=== PATIENT | female | born 1980 | race Caucasian/White ===

== ENCOUNTER 2017-02-21 21:39 | Emergency (ER) | payer OTHER ==
[~2017-02-21] VITALS: Wt 64.4 kg
[~2017-02-21 21:39] MED LIST: AMOXICILLIN500 MG PO; ANAPROX DS550 MG PO; CIPROFLOXACIN500 MG PO; PHENERGAN25 M1 PO; PRENATAL1 TA1 PO; SEPTRA DS 800 M1 TAB PO; SKELAXIN800 MG PO; VICODIN 500 MG-1 TAB PO; ZOFRAN ODT4 MG SL
[2017-02-21] MEDS ORDERED: SUBUTEX (21:46)
[2017-02-21 22:14] LABS: BILIRUBIN NEGATIVE (NEGATIVE); BLOOD NEGATIVE (NEGATIVE); CLARITY SL CLOUDY (CLEAR); COLOR YELLOW (YELLOW); GLUCOSE NEGATIVE (NEGATIVE); KETONE NEGATIVE (NEGATIVE); LEUKO ESTERASE TRACE (NEGATIVE); NITRITE NEGATIVE (NEGATIVE); PROTEIN NEGATIVE (NEGATIVE); SPECIFIC GRAVITY >= 1.030 (1.005-1.030); UROBILINOGEN 0.2 E.U./dl (0.2-1.0)
[2017-02-21 22:24] LABS: BACTERIA 3+; MUCOUS TRACE; RBC 0-2 rbc/hpf (0-2); URINE REFLEX COMMENT YES (NO); WBC 16-20 wbc/hpf (0-5)
[2017-02-21 22:43] LABS: BASO # 0.1 10*3/uL (0.0-0.1); BASO % 0.3 % (0.0-1.0); EOS # 0.1 10*3/uL (0.0-0.4); EOS % 0.6 % (1.0-4.0); HEMATOCRIT 37.5 % (37.0-47.0); HEMOGLOBIN 12.3 g/dl (12.0-16.0); IG # 0.1 10*3/uL (0.0-0.1); LYMPH # 4.1 10*3/uL (1.3-4.4); LYMPH % 26.6 % (27.0-41.0); MEAN CORPUSCULAR HGB 26.6 pg (27.0-31.0); MEAN CORPUSCULAR HGB CONC 32.8 g/dl (33.0-37.0); MEAN PLATELET VOLUME 9.7 fl (9.6-12.3); MONO # 0.7 10*3/uL (0.1-1.0); MONO % 4.8 % (3.0-9.0); NEUT # 10.5 10*3/uL (2.3-7.9); NEUT % 67.3 % (47.0-73.0); PLATELET COUNT AUTOMATED 360 10*3/uL (130-400); RED BLOOD COUNT 4.63 10*6/uL (4.10-5.10); RED CELL DISTRI WIDTH 16.2 % (0-14.5); WHITE BLOOD COUNT 15.6 10*3/uL (4.8-10.8)
[2017-02-21] MEDS ORDERED: MACROBID100 M1 PO (22:43)
[2017-02-21 22:56] LABS: BUN 13 mg/dl (7-24); CARBON DIOXIDE 25 mmol/L (21-32); CHLORIDE 106 mmol/L (98-107); EST GLOM FILT AFRICAN AMERICAN > 60 ml/min; GLUCOSE 95 mg/dL (65-99); POTASSIUM 3.6 mmol/L (3.5-5.1); SODIUM 136 mmol/L (136-145)
== END 2017-02-21 23:39 | disposition home or self-care (01) ==
LOC: ED 21:39
PROVIDERS: Student in an Organized Health Care Education/Training Program
DX: Z32.01 Encounter for pregnancy test, result positive (principal); F17.200 Nicotine dependence, unspecified, uncomplicated; G40.909 Epilepsy, unspecified, not intractable, without status epilepticus; N39.0 Urinary tract infection, site not specified; Z3A.01 Less than 8 weeks gestation of pregnancy

== ENCOUNTER 2017-05-29 23:20 | Emergency (ER) | payer OTHER ==
[~2017-05-29] VITALS: Ht 170.1 cm; Wt 63.5 kg
[~2017-05-29 23:20] MED LIST changes: +MACROBID100 M1 PO; +SUBUTEX
[2017-05-29 23:55] LABS: BILIRUBIN NEGATIVE (NEGATIVE); BLOOD NEGATIVE (NEGATIVE); CLARITY CLOUDY (CLEAR); COLOR YELLOW (YELLOW); GLUCOSE NEGATIVE (NEGATIVE); KETONE TRACE (NEGATIVE); LEUKO ESTERASE 1+ (NEGATIVE); NITRITE NEGATIVE (NEGATIVE); PH 5.5 (5.0-9.0); PROTEIN TRACE (NEGATIVE); SPECIFIC GRAVITY >= 1.030 (1.005-1.030); UROBILINOGEN 0.2 E.U./dl (0.2-1.0)
[2017-05-30 00:17] LABS: BACTERIA 4+; EPITHELIAL CELLS TNTC; RBC 21-30 rbc/hpf (0-2); WBC 21-30 wbc/hpf (0-5)
[2017-05-30 00:18] LABS: CALCIUM OXALATE CRYSTALS 1+; URINE REFLEX COMMENT YES (NO)
[2017-05-30] MEDS ORDERED: Motrin,Rufen800 MG PO (00:49)
[2017-05-30] MEDS ORDERED: FLAGYL500 MG PO (00:49)
[2017-05-30] MEDS ORDERED: ZITHROMAX250 MG PO (00:49)
== END 2017-05-30 01:25 | disposition home or self-care (01) ==
LOC: ED 23:20
PROVIDERS: Emergency Medicine Emergency Medical Services
DX: N39.0 Urinary tract infection, site not specified (principal); A59.9 Trichomoniasis, unspecified; M79.1 Myalgia; M25.512 Pain in left shoulder; F17.200 Nicotine dependence, unspecified, uncomplicated; Z20.2 Contact with and (suspected) exposure to infections with a predominantly sexual mode of transmission

== ENCOUNTER 2017-07-18 11:23 | Inpatient (IN) | payer OTHER ==
[~2017-07-18] VITALS: Ht 170.2 cm; Wt 64.1 kg
[~2017-07-18 11:23] MED LIST changes: +FLAGYL500 MG PO; +Motrin,Rufen800 MG PO; +ZITHROMAX250 MG PO
[2017-07-18 12:10] VITALS: BP 102/66
--- NOTE | 2017-07-18 12:10 | NUR ---
36 year old FEMALE admitted to room # 416 for stabilization. 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 Compliant with admission procedure. Patient is anxiois is unable to sit still, taps toes to floor continuously, looks about room, able to focus eyes on nurse during interview. See assessment forms for additional information about patient status.
[2017-07-18 13:31] LABS: BASO % 0.5 % (0.0-1.0); EOS % 0.3 % (1.0-4.0); HEMATOCRIT 40.4 % (37.0-47.0); HEMOGLOBIN 12.7 g/dl (12.0-16.0); LYMPH # 1.5 10*3/uL (1.3-4.4); LYMPH % 21.9 % (27.0-41.0); MEAN CELL VOLUME 82.4 fl (81.0-99.0); MEAN CORPUSCULAR HGB 25.9 pg (27.0-31.0); MEAN CORPUSCULAR HGB CONC 31.4 g/dl (33.0-37.0); MEAN PLATELET VOLUME 9.4 fl (9.6-12.3); MONO # 0.4 10*3/uL (0.1-1.0); MONO % 5.6 % (3.0-9.0); NEUT # 4.7 10*3/uL (2.3-7.9); NEUT % 71.4 % (47.0-73.0); PLATELET COUNT AUTOMATED 302 10*3/uL (130-400); RED CELL DISTRI WIDTH 14.4 % (0-14.5); WHITE BLOOD COUNT 6.6 10*3/uL (4.8-10.8)
[2017-07-18 13:37] LABS: BILIRUBIN NEGATIVE (NEGATIVE); BLOOD TRACE-LYSED (NEGATIVE); COLOR YELLOW (YELLOW); GLUCOSE NEGATIVE (NEGATIVE); KETONE NEGATIVE (NEGATIVE); LEUKO ESTERASE NEGATIVE (NEGATIVE); NITRITE NEGATIVE (NEGATIVE); SPECIFIC GRAVITY 1.015 (1.005-1.030)
[2017-07-18 13:42] LABS: CLARITY CLOUDY (CLEAR)
[2017-07-18 13:48] LABS: BACTERIA 2+
[2017-07-18 13:49] LABS: EPITHELIAL CELLS 15-20
[2017-07-18 13:49] LABS: ALBUMIN 3.8 gm/dl (3.1-4.5); ALKALINE PHOSPHATASE 77 U/L (45-117); BUN 10 mg/dl (7-24); CHLORIDE 105 mmol/L (98-107); CREATININE 1.09 mg/dL (0.55-1.02); LIPASE 76 U/L (73-393); POTASSIUM 4.3 mmol/L (3.5-5.1); SGOT/AST 21 IU/L (3-35); SGPT/ALT 32 U/L (12-78); SODIUM 137 mmol/L (136-145); TOTAL PROTEIN 8.6 gm/dL (6.4-8.2)
[2017-07-18 13:55] LABS: URINE AMPHETAMINES < 1000 (1000ng/ml); URINE BARBITURATES < 200 (200ng/ml); URINE BENZODIAZEPINES < 200 (200ng/ml); URINE CANNABINOIDS (THC) < 50 (50ng/ml); URINE COCAINE > 300 (300ng/ml); URINE METHADONE < 300 (300ng/ml); URINE OPIATES > 300 (300ng/ml)
[2017-07-18 13:57] LABS: BETA-HCG, QUANT < 1.0 mIU/mL (1-3); ETHYL ALCOHOL < 3.0 mg/dl (<3)
[2017-07-18 13:57] LABS: URINE PHENCYCLIDINE < 25 (25ng/ml)
--- NOTE | 2017-07-18 14:15 | NUR ---
MEDICATED WITH PRN BENTYL,MOTRIN,ROBAXIN,VISTARIL, AND ZOFRAN PER ORDERS AND REQUEST.
[2017-07-18 16:00] VITALS: BP 109/47
--- NOTE | 2017-07-18 16:01 | NUR ---
D/C PLANNING: PATIENT PLAN OF ACTION IS INPATIENT TREATMENT AND/OR OUTPATIENT TREATMENT AT [facility] OR [facility] FOR THE VIVITROL SHOT. A REFERRAL WAS SENT TO [facility] FOR INPATIENT TREATMENT. DESMOND MILES B.A. 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
[2017-07-18 20:00] VITALS: BP 108/67
--- NOTE | 2017-07-18 20:14 | NUR ---
PRN TYLENOL, ROBAXIN, VISTARIL AND BENTYL GIVEN FOR PT COMPLAINTS OF MUSCLE ACHES, ANXIETY AND STOMACH PAIN. CALL LIGHT WITHIN REACH, WILL MONITOR
--- NOTE | 2017-07-18 21:30 | NUR ---
PRN MEDICATION SOMEWHAT EFFECTIVE PER PT
--- NOTE | 2017-07-18 21:36 | NUR ---
PRN TRAZADONE GIVEN FOR PT COMPLAINTS OF SLEEPLESSNESS. CALL LIGHT WITHIN REACH, WILL MONITOR
[2017-07-19] VITALS: BP 112/62
--- NOTE | 2017-07-19 | NUR ---
SECOND DOSE OF PRN TRAZADONE GIVEN FOR PT COMPLAINTS OF CONTINUED SLEEPLESSNESS. CALL LIGHT WITHIN REACH,WILL MONITOR
--- NOTE | 2017-07-19 01:00 | NUR ---
PRN TRAZADONE APPEARS EFFECTIVE, PT SLEEPING
[2017-07-19 04:00] VITALS: BP 105/72
[2017-07-19 08:00] VITALS: BP 113/62
--- NOTE | 2017-07-19 11:52 | NUR ---
PATIENT CALLED RN TO ROOM STATING SHE HAS TO LEAVE SHE FORGOT SHE HAS A COURT DATE,AND SHE IS GOING TO GET VIVATROL. 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
--- NOTE | 2017-07-19 12:03 | NUR ---
PATIENT LEFT AMA.
== END 2017-07-19 12:03 | disposition left against medical advice (07) | DRG 894 ==
LOC: 4E 11:23
PROVIDERS: Internal Medicine Nephrology; ADMIT Internal Medicine
DX: F11.23 Opioid dependence with withdrawal (principal); F14.10 Cocaine abuse, uncomplicated; G40.909 Epilepsy, unspecified, not intractable, without status epilepticus; Z53.21 Procedure and treatment not carried out due to patient leaving prior to being seen by health care provider; R73.9 Hyperglycemia, unspecified; F17.210 Nicotine dependence, cigarettes, uncomplicated; Z80.0 Family history of malignant neoplasm of digestive organs; Z80.8 Family history of malignant neoplasm of other organs or systems; Z71.6 Tobacco abuse counseling